=== PATIENT | male | born 1990 | race Caucasian/White ===

== ENCOUNTER 2021-04-13 16:10 | Observation (INO) | payer OTHER ==
[~2021-04-13] VITALS: Ht 177.8 cm; Wt 83.9 kg
[~2021-04-13 16:10] MED LIST: ARTIFICIAL TEAR15 M3 OP; IBUPROFEN600 MG PO; NAPROSYN500 MG PO; SILVADENE20 GM TP
== END 2021-04-14 14:53 | disposition home or self-care (01) ==
LOC: ER1 16:10 → CDU 19:06 → M/S 19:06
PROVIDERS: ADMIT Surgery
DX: T18.5XXA Foreign body in anus and rectum, initial encounter (principal); F32.9 Major depressive disorder, single episode, unspecified; Z20.822 Contact with and (suspected) exposure to COVID-19
CPT/HCPCS: 74018; 99285; G0378; J0690; J1100; J2001; J2270; J2405; J2704; U0002